=== PATIENT | male | born 1985 | race Caucasian/White ===

== ENCOUNTER 2020-04-03 02:30 | Emergency (ER) | payer OTHER, BC ==
[~2020-04-03] VITALS: Ht 180 cm; Wt 81.0 kg
[~2020-04-03 02:30] MED LIST: CLON0.5T60 PO; ESCI20TA2 PO; HYDR1TAB PO
--- OUTSIDE RECORDS SUMMARY | 2020-04-03 02:41 | XMS REPORT ---
Author Author Alverto Griffith Doctor Organization [facility] Address Unknown Phone Unavailable Care Team Providers Care Emergency Vehicle Technician Name Role Phone Migration, Doctor Unavailable Unavailable PROBLEMS Type Condition ICD9-CM Code SFQ35-WY Code Onset Dates Condition S tatus SNOMED Code Problem Depression F32.9 Apr, Active 768625 005 Problem Generalized anxiety disorder F41.1 Apr, 201 2 Active 20450416 Problem Panic attacks F41.0 January, Active 371 029673 Problem Environmental allergies Z91.09 January, Act arabella [id number] ALLERGIES No Information ENCOUNTERS Encounter Location Date Diagnosis [facility] [address] [phone] May, Generalized anxiety disorder F41.1 [facility] [address] [id number] [address] [place] [phone] Apr, [facility] [id number] [place] [phone] Mar, Generalized anxiety disorder F41.1 [facility] [id number] [place] [phone] Feb, Generalized anxiety disorder F41.1 [facility] [id number] [place] [phone] Feb, Generalized anxiety disorder F41.1 [facility] [id number] [place] [phone] Oct, Throat pain in adult R07.0 and Left otitis media with effusion H65.92 [facility] [address] [phone] Sep, Anxiety F41.9 [facility] [address] [facility] [id number] [address] [place] [phone] Aug, [facility] [address] [id number] [address] [place] [phone] 13 Apr, 2018 [facility] [address] [id number] [address] [place] [phone] 14 Dec, 2014 [facility] [address] [id number] [address] [place] [phone] 13 Dec, 2014 [facility] [address] [id number] [address] [place] [phone] 17 May, 2012 [facility] [address] [id number] [address] [place] [phone] 10 May, 2012 [facility] [address] [id number] [address] [place] [phone] 25 Feb, 2012 [facility] [address] [id number] [address] [place] [phone] 12 Feb, 2012 [facility] [address] [id number] [address] [place] [phone] 25 Dec, 2011 [facility] [address] [id number] [address] [place] [phone] Nov, [facility] [address] [id number] [address] [place] [phone] Sep, [facility] [address] [id number] [address] [place] [phone] 13 Feb, 2011 [facility] [address] [id number] [address] [place] [phone] 14 Dec, 2010 [facility] [address] [id number] [address] [place] [phone] Sep, IMMUNIZATIONS No Known Immunizations SOCIAL HISTORY Never Assessed REASON FOR VISIT PLAN OF CARE VITAL SIGNS Height 72 in 2012-03-06 Weight 182 lbs 2012-03-06 Heart Rate 72 bpm 2012-03-06 Respiratory Rate 18 2012-03-06 Blood pressure systolic 124 mmHg 2012-03-06 Blood pressure diastolic 88 mmHg 2012-03-06 MEDICATIONS Unknown Medications RESULTS No Results PROCEDURES No Known procedures INSTRUCTIONS MEDICATIONS ADMINISTERED No Known Medications
--- OUTSIDE RECORDS SUMMARY | 2020-04-03 02:41 | XMS REPORT ---
Author Author Alverto Griffith Doctor Organization [facility] Address Unknown Phone Unavailable Care Team Providers Care Eradicator Name Role Phone Migration, Doctor Unavailable Unavailable PROBLEMS Type Condition ICD9-CM Code ITG08-AM Code Onset Dates Condition S tatus SNOMED Code Problem Depression F32.9 Apr, Active 890842 005 Problem Generalized anxiety disorder F41.1 Apr, 201 2 Active 07922217 Problem Panic attacks F41.0 January, Active 371 410785 Problem Environmental allergies Z91.09 January, Act arabella [id number] ALLERGIES No Information ENCOUNTERS Encounter Location Date Diagnosis [facility] [address] [phone] May, Generalized anxiety disorder F41.1 [facility] [address] [id number] [address] [place] [phone] Apr, [facility] [id number] [place] [phone] Mar, Generalized anxiety disorder F41.1 [facility] [id number] [place] [phone] Feb, Generalized anxiety disorder F41.1 [facility] [id number] [place] [phone] Feb, Generalized anxiety disorder F41.1 [facility] [id number] [place] [phone] Oct, Throat pain in adult R07.0 and Left otitis media with effusion H65.92 [facility] [address] [phone] Sep, Anxiety F41.9 [facility] [address] [facility] [id number] [address] [place] [phone] Aug, [facility] [address] [id number] [address] [place] [phone] 13 Apr, 2018 [facility] [address] [id number] [address] [place] [phone] 14 Dec, 2014 [facility] [address] [id number] [address] [place] [phone] 13 Dec, 2014 [facility] [address] [id number] [address] [place] [phone] 17 May, 2012 [facility] [address] [id number] [address] [place] [phone] 10 May, 2012 [facility] [address] [id number] [address] [place] [phone] 25 Feb, 2012 [facility] [address] [id number] [address] [place] [phone] Feb, [facility] [address] [id number] [address] [place] [phone] Dec, [facility] [address] [id number] [address] [place] [phone] Nov, [facility] [address] [id number] [address] [place] [phone] Sep, [facility] [address] [id number] [address] [place] [phone] Feb, [facility] [address] [id number] [address] [place] [phone] 14 Dec, 2010 [facility] [address] [id number] [address] [place] [phone] Sep, IMMUNIZATIONS No Known Immunizations SOCIAL HISTORY Never Assessed REASON FOR VISIT PLAN OF CARE VITAL SIGNS MEDICATIONS Unknown Medications RESULTS No Results PROCEDURES No Known procedures INSTRUCTIONS MEDICATIONS ADMINISTERED No Known Medications
--- OUTSIDE RECORDS SUMMARY | 2020-04-03 02:41 | XMS REPORT ---
Author Author Alverto Griffith Doctor Organization [facility] Address Unknown Phone Unavailable Care Team Providers Care Pilot Highway Patrol Name Role Phone Migration, Doctor Unavailable Unavailable PROBLEMS Type Condition ICD9-CM Code WDF90-MA Code Onset Dates Condition S tatus SNOMED Code Problem Panic attacks 300.01 January, 0 371 127905 Problem Environmental allergies V15.09 January, 0 966575204 Problem Depression 311 Apr, 0 765709 07 Problem Depression F32.9 Apr, 0 053081 07 Problem Generalized anxiety disorder F41.1 Apr, 2 0 14053557 Problem Anxiety F41.9 Active 83793486 Problem Unspecified internal derangement of knee 717.9 Active 93626403 Problem Generalized anxiety disorder 300.02 Apr, 201 2 0 18095074 Problem Panic attacks F41.0 January, 0 371 640496 Problem Environmental allergies Z91.09 January, 0 [id number] ALLERGIES No Information ENCOUNTERS Encounter Location Date Diagnosis [address] [place] [address] Oct, Throat pain in adult R07.0 and Left otitis media with effusion H65.92 [facility] [address] [place] [address] Sep, Anxiety F41.9 [facility] [address] [facility] [id number] [address] [place] [phone] Aug, [facility] [address] [facility] [id number] [address] [place] [phone] Apr, [facility] [address] [facility] [id number] [address] [place] [phone] Dec, [facility] [address] [facility] [id number] [address] [place] [phone] Dec, [facility] [address] [facility] [id number] [address] [place] [phone] May, [facility] [address] [id number] [address] [place] [phone] 10 May, 2012 [facility] [address] [id number] [address] [place] [phone] 25 Feb, 2012 [facility] [address] [id number] [address] [place] [phone] Feb, [facility] [address] [id number] [address] [place] [phone] Dec, [facility] [address] [id number] [address] [place] [phone] Nov, [facility] [address] [id number] [address] [place] [phone] Sep, [facility] [address] [id number] [address] [place] [phone] Feb, [facility] [address] [id number] [address] [place] [phone] 14 Dec, 2010 [facility] [address] [id number] [address] [place] [phone] Sep, IMMUNIZATIONS No Known Immunizations SOCIAL HISTORY Never Assessed REASON FOR VISIT [facility] [place] VITAL SIGNS MEDICATIONS No Known Medications RESULTS No Results PROCEDURES No Known procedures INSTRUCTIONS MEDICATIONS ADMINISTERED No Known Medications
--- OUTSIDE RECORDS SUMMARY | 2020-04-03 02:41 | XMS REPORT ---
Author Author Alverto Griffith Doctor Organization [facility] Address Unknown Phone Unavailable Care Team Providers Care Mat Weaver Name Role Phone Migration, Doctor Unavailable Unavailable PROBLEMS Type Condition ICD9-CM Code FZW69-CK Code Onset Dates Condition S tatus SNOMED Code Problem Panic attacks 300.01 January, 0 371 157112 Problem Environmental allergies V15.09 January, 0 362737372 Problem Depression 311 Apr, 0 513435 07 Problem Depression F32.9 Apr, 0 226161 07 Problem Generalized anxiety disorder F41.1 Apr, 2 0 12299995 Problem Anxiety F41.9 Active 15992678 Problem Unspecified internal derangement of knee 717.9 Active 43619104 Problem Generalized anxiety disorder 300.02 Apr, 201 2 0 17080816 Problem Panic attacks F41.0 January, 0 371 842113 Problem Environmental allergies Z91.09 January, 0 535126342 ALLERGIES No Information ENCOUNTERS Encounter Location Date Diagnosis [address] [place] [address] Oct, Throat pain in adult R07.0 and Left otitis media with effusion H65.92 [facility] [address] [place] [address] Sep, Anxiety F41.9 [facility] [address] [facility] [id number] [address] [place] [phone] Aug, [facility] [address] [facility] [id number] [address] [place] [phone] Apr, [facility] [address] [facility] [id number] [address] [place] [phone] Dec, [facility] [address] [facility] [id number] [address] [place] [phone] Dec, [facility] [address] [facility] [id number] [address] [place] [phone] May, [facility] [address] [id number] [address] [place] [phone] 10 May, 2012 [facility] [address] [id number] [address] [place] [phone] 25 Feb, 2012 [facility] [address] [id number] [address] [place] [phone] Feb, [facility] [address] [id number] [address] [place] [phone] Dec, [facility] [address] [id number] [address] [place] [phone] Nov, [facility] [address] [id number] [address] [place] [phone] Sep, [facility] [address] [id number] [address] [place] [phone] Feb, [facility] [address] [id number] [address] [place] [phone] 14 Dec, 2010 [facility] [address] [id number] [address] [place] [phone] Sep, IMMUNIZATIONS No Known Immunizations SOCIAL HISTORY Never Assessed REASON FOR VISIT [facility] [place] VITAL SIGNS MEDICATIONS Medication Instructions Dosage Frequency Start Date End Date Duration S tatus Clonazepam 1 mg 1 tablet by Oral route 2 times per day 2 5 Feb, 2012 Active Lexapro 20 mg 1 tablet by Oral route 1 time per day 25 J un, 2011 Active RESULTS No Results PROCEDURES No Known procedures INSTRUCTIONS MEDICATIONS ADMINISTERED No Known Medications
--- OUTSIDE RECORDS SUMMARY | 2020-04-03 02:41 | XMS REPORT | Continuity of Care Document ---
Author Organization Unknown Address Unknown Phone Unavailable Allergies Active Description Code Type Severity Reaction Onset Reported/Identified Relationship to Patient Clinical Status Yes Penicillins [id number] Drug Aller gy Unknown N/A 11/14/2011 Medications There is no data. Problems There is no data. Procedures There is no data. Results There is no data. Encounters ACCT No. Visit Date/Time Discharge Status Pt. Type Provider Facility Loc./Unit Complaint [id number] 03/01/2019 11:00:00 03/01/2019 23:59:5 9 [id number] 02/27/2020 15:22:00 02/27/2020 23:59 :00 [facility] Outpatient [facility] [id number] 01/25/2020 09:22:00 01/25/2020 23:59 :00 DIS Outpatient [facility] [id number] 10/17/2019 13:50:00 10/17/2019 23:59 :00 DIS Outpatient [facility] [id number] 07/27/2019 11:16:00 07/27/2019 23:59: 00 DIS Outpatient [facility] [id number] 04/03/2020 02:37:[address] Emergency FRANCESCO RONDON, RUBEN Estrada [facility] ER WC-LEFT KNEE INJURY
[2020-04-03 02:50] VITALS: BP 146/103
[2020-04-03] MEDS ORDERED: IBUPROFEN 800 MG (MOTRIN) TAB PO ONE ×2 (02:53→03:00)
--- NOTE | 2020-04-03 02:55 | ED Lower Extremity ---
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 Pt denies any previous injury to affected extremity. Nursing Sepsis Screen: No Definite Risk Source: patient Exam Limitations: no limitations History of Present Illness Date Seen by Provider: Apr 03, 2020 Time Seen by Provider: 02:48 Initial Comments Patient presents to the ER by private conveyance from work [employer] where he got tripped up and some air hoses just prior to arrival and fell landing on both of his knees. He is not having pain, laxity and feeling of hyperextension been putting weight on his left knee. At rest it is a 1 out of 10 but the pain becomes a 8 out of 10 when trying to put pressure on it. No previous history of injury, fracture, surgeries or scopes to his left knee. No pain in his ankle or hip. He has not taken anything for the pain yet. No hitting his head, loss of consciousness. Not on blood thinners. Takes Klonopin when necessary anxiety Allergies and Home Medications Allergies Coded Allergies: Penicillins (Unverified Allergy, Unknown, 11/14/11) Home Medications Clonazepam 0.5 Mg/Tab Tab.rapdis, 1 EACH PO BID PRN, (Reported) Escitalopram Oxalate 20 Mg Tablet, 1 EACH PO DAILY, (Reported) Hydrocodone Bit/Acetaminophen 1 Each Tablet, 1-2 EACH PO Q4HR PRN, (Reported) Patient Home Medication List Home Medication List Reviewed: Yes Review of Systems Constitutional: No chills, No diaphoresis EENTM: No ear discharge, No ear pain Respiratory: No cough, No short of breath Cardiovascular: No edema, No palpitations, No syncope Gastrointestinal: No abdominal pain, No constipation, No diarrhea Genitourinary: No discharge, No dysuria Musculoskeletal: No back pain; joint pain (left knee pain) Skin: No lumps, No rash All Other Systems Reviewed Negative Unless Noted: Yes Past Xiyektd-Ndxbnq-Lcdumd Hx Patient Social History Alcohol Use: Occasionally Uses Alcohol Beverage of Choice: Beer Recreational Drug Use: No Smoking Status: Never a Smoker Recent Foreign Travel: No Contact w/Someone Who Travel: No Recent Infectious Disease Expo: No Past Medical History Reproductive Disorders: No Physical Exam Vital Signs Vital Signs - First Documented 04/03/20 02:50 Temp 36.8 Pulse 77 Resp 18 B/P (MAP) 146/103 (117) Pulse Ox 99 O2 Delivery Room Air Capillary Refill : Less Than 3 Seconds Height, Weight, BMI Height: '" Weight: lbs. oz. kg; 25.00 BMI Method: General Appearance: WD/WN, mild distress HEENT: PERRL/EOMI, pharynx normal Neck: full range of motion, normal inspection Cardiovascular: normal peripheral pulses, regular rate, rhythm Respiratory: no respiratory distress, no accessory muscle use Hips: bilateral hip non-tender, bilateral hip normal inspection, bilateral hip normal range of motion, bilateral hip no evidence of injury Knees: right knee non-tender; bilateral knee normal inspection, bilateral knee normal range of motion; right knee no evidence of injury; left knee bone tenderness (tenderness over patella and when palpating the inferior patellar ligament) Ankles: bilateral ankle non-tender, bilateral ankle normal inspection, bilateral ankle normal range of motion, bilateral ankle no evidence of injury Neurologic/Tendon: normal sensation, normal motor functions, normal tendon functions, no evidence tendon injury Neurologic/Psychiatric: alert, normal mood/affect, oriented x 3 Skin: normal color, warm/dry Progress/Results/Core Measures Results/Orders My Orders Orders - RUBEN MAYA Knee, Left, 3 Views (04/03/20 02:52) Ibuprofen Tablet (Motrin Tablet) (04/03/20 03:00) Ibuprofen Tablet (Motrin Tablet) (04/03/20 02:53) Vital Signs/I&O 04/03/20 02:50 Temp 36.8 Pulse 77 Resp 18 B/P (MAP) 146/103 (117) Pulse Ox 99 O2 Delivery Room Air Blood Pressure Mean: 117 Progress Progress Note : Time: 02:59 Progress Note X-ray left knee. Ibuprofen for pain. Ice pack for the knee. Diagnostic Imaging Diagonstic Imaging: Xray Plain Films/CT/US/NM/MRI: knee (left three-view) Comments No acute osseous abnormality or fracture seen on three-view x-ray. Reviewed: Reviewed by Me Departure Impression Primary Impression: Fall Qualified Codes: W19.XXXA - Unspecified fall, initial encounter Additional Impression: Left anterior knee pain Disposition: 01 HOME, SELF-CARE Condition: Stable Departure-Patient Inst. Decision time for Depature: 03:07 Referrals: TIERA PEREZ (PCP/Family) Primary Care Physician Patient Instructions: Knee Sprain (DC), Ankle Sprain (DC) Add. Discharge Instructions: Ice for 20 minutes every 4 hours while awake for the next 2 days. Heating pads and topical creams such as icy hot, Biofreeze can be helpful. Keep the compression wrap such as a neoprene sleeve or Clay bandage in place over the knee until swelling and pain improves. Tylenol 1000 mg every 8 hours as necessary for pain. Ibuprofen 800 mg every 8 hours as necessary for pain. Alternatively you may use Aleve/naproxen 2 tablets twice a day. Plan follow-up with occupational health for reexamination. All discharge instructions reviewed with patient and/or family. Voiced understanding. Work/School Note: Work Release Form Date Seen in the Emergency Department: Apr 03, 2020 Return to Work: Apr 04, 2020 Restrictions: Need Release from Doctor Other Restrictions Listed Below: Light duty until 04/07/20. RUBEN MAYA Apr 03, 2020 02:55
--- NOTE | 2020-04-03 07:44 | Diagnostic Imaging Report ---
CLINICAL INDICATION: Patient with knee pain. EXAM: X-ray of the left knee, 3 views. COMPARISON: None. FINDINGS: There is no acute fracture or dislocation. There is appearance of a small left knee effusion. There is a small pedunculated osteochondroma involving the lateral aspect of the proximal tibial metaphysis which measures roughly 1.6 cm in length and roughly 0.6 cm in width. The remainder of this exam is unremarkable. IMPRESSION: 1: There is no acute fracture or dislocation. 2: There is a small knee effusion. 3: Incidental note of a small pedunculated osteochondroma involving the lateral aspect of the proximal left tibial metaphysis. Dictated by: Dictated on workstation # [id number]
== END 2020-04-03 03:17 | disposition home or self-care (01) ==
LOC: EDUNIT# 02:30 → ER 02:37
DX: M25.562 Pain in left knee (principal); Z88.0 Allergy status to penicillin; W01.0XXA Fall on same level from slipping, tripping and stumbling without subsequent striking against object, initial encounter; Y92.59 Other trade areas as the place of occurrence of the external cause; Y99.0 Civilian activity done for income or pay
CPT/HCPCS: 73562; 99283